=== PATIENT | female | born 1980 | race Two or more races ===

== ENCOUNTER 2022-05-25 13:09 | Emergency (ER) | payer OTHER, SELFPAY ==
--- NOTE | ~2022-05-25 | XR_ITS ---
EXAMINATION: XR SOFT TISSUE NECK CLINICAL INDICATION: Difficulty swallowing COMPARISON: None TECHNIQUE: 2 views of the soft tissue neck were obtained. FINDINGS: No radiodense foreign body. Normal appearance of the epiglottis and upper trachea. No retropharyngeal soft tissue swelling. Mild cervical spondylosis at C4-C5 through C6-C7. Preserved intervertebral disc heights. Visualized lung apices appear clear. XR/XR soft tissue neck IMPRESSION: 1. No radiodense foreign body. 2. No retropharyngeal soft tissue swelling.
--- NOTE | ~2022-05-25 | CT_ITS ---
EXAMINATION: CT SOFT TISSUE NECK WITH CONTRAST CLINICAL INFORMATION: Difficulty swallowing. COMPARISON: None. TECHNIQUE: Following intravenous administration of 60 mL of Omnipaque 350 contrast, helical imaging was performed in the axial plane with generation of coronal and sagittal reformatted images. Slightly limited examination with motion artifacts. This CT examination was performed using dose optimization techniques as appropriate, variously including the following: *Automated exposure control *Adjustment of mA and/or kV according to patient size (this includes techniques or standardized protocols for targeted exams where dose is matched to indication/reason for exam; i.e. extremities or head) *Use of iterative reconstruction technique DLP: 784 mGy-cm FINDINGS: No contour abnormality or pathologic enhancement is seen within the oral cavity, pharyngeal mucosal space, or larynx. The thyroid gland is normal. No cervical adenopathy is seen. The parotid and submandibular glands are normal. No abnormal retropharyngeal fluid collection identified. Dental hardware in place. No periapical lucencies are seen. The temporomandibular joints are normal. The middle ear cavities, mastoid air cells, and paranasal sinuses are well aerated. The airway is maintained. The carotid sheath vasculature opacifies normally. The imaged mediastinum is normal. The visualized portions of the lungs are grossly clear. There is a small calcified granuloma in the right upper lobe. The orbits are normal. The imaged portions of the brain demonstrate no acute abnormality. No acute osseous abnormality identified. The craniovertebral junction is normal. There is significant ossification of the posterior longitudinal ligament from the C3 through the C6 levels resulting in ventral thecal sac and cord distortion, most significantly at the C4-C5 and C5-C6 levels. CT/CT soft tissue neck w IV con IMPRESSION: Slightly limited study with motion artifacts. No soft tissue abnormality or fluid collection. No adenopathy. No acute process. 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
--- NOTE | 2022-05-25 13:12 | ED.GENADULT ---
HPI - General Adult General Chief complaint: General Medical <Clementine Carpio CNP - Last Filed: 05/25/22 13:18> Stated complaint: splur speach <Clementine Carpio CNP - Last Filed: 05/25/22 13:18> Time Seen by Provider: 05/25/22 16:45 <Clementine Carpio CNP - Last Filed: 05/25/22 13:18> Source: patient and family (Daughter) <JEFERSON Quinn - Last Filed: 05/25/22 20:06> Mode of arrival: ambulatory <JEFERSON Quinn Last Filed: 05/25/22 20:06> Limitations: other (And wishes 2nd language, family used for interpretation per patient request) <JEFERSON Quinn - Last Filed: 05/25/22 20:06> History of Present Illness HPI narrative: This is a 42-year-old female presenting to the emergency department with difficulty swallowing x2 weeks. According to patient this has been going on for 2 weeks and worsening. She tells me this started after she choked on a piece of pizza dough. She reports ever since then she has difficulty swallowing solids however does not have difficulties with swallowing fluids. She tells me she feels and discomfort in the bottom of her throat. She tells me she has not been eating much over the past few weeks because of this, she has a hard time telling me whether not she feels a foreign body sensation but she points to her throat and tells me she feels like there may be something there however uncertain. She reports 15 lb weight loss due to poor p.o. intake. Denies fevers, chills, chest pain, shortness of breath, nausea, vomiting, diarrhea, abdominal pain, headache, vision changes, dizziness, no changes in speech, no weakness <JEFERSON Quinn Last Filed: 05/25/22 20:06> Related Data Home medications: Previous Rx's Medication Instructions Recorded sucralfate 100 mg/mL oral 1 g (10 mL) PO Q6H 2 weeks #560 mL 05/25/22 suspension (Carafate) <Clementine Carpio CNP - Last Filed: 05/25/22 13:18> Allergies/adverse reactions: Allergies Allergy/AdvReac Type Severity Reaction Status Date / Time No Known Allergies Allergy Verified 05/25/22 13:19 <Clementine Carpio CNP - Last Filed: 05/25/22 13:18> Review of Systems Review of Systems: Constitutional : No Weight loss, No Fever, No Chills, No Fatigue, No Malaise ENT/Mouth : No sore throat, No Rhinorrhea, + FB sensation in throat Eyes: No Eye Pain, No Swelling, No Redness Cardiovascular : No Chest Pain, No SOB, No Dyspnea on Exertion, No Orthopnea, No Edema, No Palpitations Respiratory : No Cough, No Sputum, No Wheezing Gastrointestinal : No Nausea, No Vomiting, No Diarrhea, No Constipation, No abdominal Pain, No Hematochezia, No Melena Genitourinary : No Dysuria, No Urinary Frequency, No Hematuria, Musculoskeletal : No joint pain, No Myalgias, No Joint Swelling Skin : No Skin Lesions, No rash Neuro : No Weakness, No Numbness, No Dizziness, No Headache Psych : No Anxiety/Panic, No Depression All other systems reviewed and are negative <JEFERSON Quinn - Last Filed: 05/25/22 20:06> Yes all other systems are reviewed and are negative <JEFERSON Quinn - Last Filed: 05/25/22 20:06> [facility] Past Medical History Attestation statement: The following information was validated with the patient. <JEFERSON Quinn - Last Filed: 05/25/22 20:06> Source: old records reviewed and nursing notes reviewed <JEFERSON Quinn - Last Filed: 05/25/22 20:06> Social History Social History: Social History Advance Directives: No Advance Directives Information Provided: No <Clementine Carpio CNP - Last Filed: 05/25/22 13:18> Physical Exam ED Vital Signs: Vital Signs - 24 hr 05/25/22 13:15 05/25/22 17:42 Temperature 97.7 F Pulse Rate 95 91 Respiratory Rate 17 16 Blood Pressure 160/74 H 145/69 H Pulse Oximetry 98 98 Oxygen Delivery Method Room Air Room Air BMI result Body Mass Index 34.0 <Clementine Ayeshaedin Carpio CNP - Last Filed: 05/25/22 13:18> Vital Signs - 24 hr 05/25/22 13:15 05/25/22 17:42 Temperature 97.7 F Pulse Rate 95 91 Respiratory Rate 17 16 Blood Pressure 160/74 H 145/69 H Pulse Oximetry 98 98 Oxygen Delivery Method Room Air Room Air BMI result Body Mass Index 34.0 Vital signs stable <JEFERSON Quinn - Last Filed: 05/25/22 20:06> Appearance: Alert.? Oriented X3.? No acute distress.? Patient appears comfortable, speaking in full sentences, controlling secretions well and in no acute distress. Head: Normocephalic, atraumatic, no step-offs or deformities Eyes: Pupils equal, round and reactive to light.? ENT: Pharynx normal.? Airway patent, no foreign bodies. No edema, erythema to posterior pharynx. Neck: Normal inspection.? Neck supple.? CVS: Normal heart rate and rhythm.? Pulses normal.? Respiratory: No respiratory distress.? Breath sounds normal.? No stridor. Abdomen: Soft and nontender.? Skin: Skin warm and dry.? Normal skin color.? Normal skin turgor.? Extremities: No lower extremity edema.? No calf ttp. 5/5 strength to bilateral upper and lower extremities Neuro: Oriented X 3.? No motor deficit.? No sensory deficit. CN 2-12 intact . Normal pbxktx-[id number], euyv-rx-[id number], steady tandem gait normal coordination. NIH stroke scale 0. <JEFERSON Quinn - Last Filed: 05/25/22 20:06> Course Course Course Narrative: This is an RME: Additional HPI, ROS, PE not included below will be deferred to primary provider. Patient is a 42-year-old female who presents to the emergency department who presents to the emergency department reporting that 2 weeks ago reports that she chocked on a piece of pizza dough. Since then her mouth feels really dry, decreased saliva, having trouble sleeping. States only able tolerate liquids, when attempting to eat solid she feels as though she is unable to swallow it without spitting it out. She does report a couple of time she has been able to swallow solids without difficulty. Reports a FB sensation, pointing to her lower neck. Denies fevers, chills, nausea, vomiting, abdominal pain. Currently in no distress. <Clementine Carpio CNP - Last Filed: 05/25/22 13:18> Reevaluation(s) Reevaluation #1: CBC within normal limits. Chemistries within no acute finding. HCG negative. Coags normal. Soft tissue neck x-ray with no radiodense foreign bodies. No retropharyngeal soft tissue. Discussed CT scan results with Gastroenterology Dr. Doty, he advises outpatient follow-up and will likely require a barium swallow. Will give referral to GI. He also recommends giving patient fluids prior to discharge and soft food. Recommends discharge with Carafate suspension 1 g q.i.d. for 2 weeks to treat any component of esophageal abrasion. Patient tolerating fluids and soft foods. She will be discharged home. Advised to return with any new or worsening symptoms. <JEFERSON Quinn - Last Filed: 05/25/22 20:06> Time: 20:05 <JEFERSON Quinn - Last Filed: 05/25/22 20:06> Medications Administered Discontinued Medications Generic Name Dose Route Start Last Admin Trade Name Freq PRN Reason Stop Dose Admin Iohexol 150 ml 05/25/22 18:02 05/25/22 18:03 Iohexol 350 Mg/Ml 150 Ml Infus..Btl IV 05/25/22 18:03 60 ml ONCE ONE Administration <Clementine Carpio CNP - Last Filed: 05/25/22 13:18> Medications Administered Discontinued Medications Generic Name Dose Route Start Last Admin Trade Name Freq PRN Reason Stop Dose Admin Iohexol 150 ml 05/25/22 18:02 05/25/22 18:03 Iohexol 350 Mg/Ml 150 Ml Infus..Btl IV 05/25/22 18:03 60 ml ONCE ONE Administration <JEFERSON Qiunn - Last Filed: 05/25/22 20:06> Medical Decision Making Medical Decision Making [facility] Narrative: 1700 42-year-old female presents with difficulty swallowing status post choking episode 2 weeks ago. Reports 15 lb weight loss in the past 2 weeks. Appears comfortable and in no acute distress. Physical examination benign. Patient speaking in full sentences. Comfortable appearing. No stridor. Vital signs are stable. Concerns for possible foreign body in throat. Also concerns for esophageal stricture. Unlikey Stroke or posterior stroke. Will obtain CT of neck soft tissues. <JEFERSON Quinn - Last Filed: 05/25/22 20:06> Lab Data Result Diagrams: : 05/25/22 13:51 05/25/22 13:50 <Clementine Carpio CNP - Last Filed: 05/25/22 13:18> Labs: Lab Results 05/25/22 05/25/22 05/25/22 Range/Units 13:50 13:50 13:51 WBC 5.9 (4.8-10.8) X10*3/uL RBC 4.27 (4.20-5.50) X10*6/uL Hgb 10.2 L (12.0-16.0) g/dl Hct 32.6 L (37.0-47.0) % MCV 76.3 L (80.0-98.0) fL MCH 23.9 L (27.0-33.0) pg MCHC 31.3 (31.0-35.0) g/dl RDW 16.3 H (11.0-16.0) % Plt Count 357 (160-400) X10*3/uL MPV 10.3 (9.4-12.3) fL Immature Gran % (Auto) 0.3 (0.0-0.4) % Neut % (Auto) 70.7 (45-73) % Lymph % (Auto) 23.1 (20-40) % [place] % (Auto) 5.1 (2-11) % Eos % (Auto) 0.3 (0-4) % Baso % (Auto) 0.5 (0-2) % Lymph # (Auto) 1.4 (1.2-4.9) X10*3/uL [place] # (Auto) 0.3 (0.1-1.2) X10*3/uL Eos # (Auto) 0.0 (0.0-0.4) X10*3/uL Baso # (Auto) 0.0 (0.0-0.2) X10*3/uL Abs Immat Gran (auto) 0.02 (0.00-0.03) X10*3/uL Absolute Neuts (auto) 4.2 (2.0-8.3) x10*3/uL Absolute Nucleated RBC 0.000 (0.0-0.012) X10*3/uL Nucleated RBC % (auto) 0.0 (0.0-0.2) /100WBC PT 12.3 (10.0-13.1) SEC INR 1.1 (0.9-1.1) Sodium 139 (135-145) mmol/L Potassium 3.8 (3.3-5.1) mmol/L Chloride 105 (96-108) mmol/L Carbon Dioxide 26 (22-29) mmol/L Anion Gap 12 (12-20) BUN 7 L (9-16) mg/dL Creatinine 0.80 (0.5-1.4) mg/dL Estim Creat Clear Calc 116.5 Estimated GFR > 60 Random Glucose 106 (60-115) mg/dL Calcium 9.5 (8.4-10.2) mg/dL Total Bilirubin 0.5 (0.0-1.0) mg/dL AST 16 (5-31) U/L ALT 19 (0-31) U/L Alkaline Phosphatase 51 (39-117) U/L Total Protein 7.2 (6.5-8.0) g/dL Albumin 4.5 (3.5-5.0) g/dL Beta HCG, Quant < 2 mIU/mL <Clementine Carpio CNP - Last Filed: 05/25/22 13:18> Lab Results 05/25/22 05/25/22 05/25/22 Range/Units 13:50 13:50 13:51 WBC 5.9 (4.8-10.8) X10*3/uL RBC 4.27 (4.20-5.50) X10*6/uL Hgb 10.2 L (12.0-16.0) g/dl Hct 32.6 L (37.0-47.0) % MCV 76.3 L (80.0-98.0) fL MCH 23.9 L (27.0-33.0) pg MCHC 31.3 (31.0-35.0) g/dl RDW 16.3 H (11.0-16.0) % Plt Count 357 (160-400) X10*3/uL MPV 10.3 (9.4-12.3) fL Immature Gran % (Auto) 0.3 (0.0-0.4) % Neut % (Auto) 70.7 (45-73) % Lymph % (Auto) 23.1 (20-40) % [place] % (Auto) 5.1 (2-11) % Eos % (Auto) 0.3 (0-4) % Baso % (Auto) 0.5 (0-2) % Lymph # (Auto) 1.4 (1.2-4.9) X10*3/uL [place] # (Auto) 0.3 (0.1-1.2) X10*3/uL Eos # (Auto) 0.0 (0.0-0.4) X10*3/uL Baso # (Auto) 0.0 (0.0-0.2) X10*3/uL Abs Immat Gran (auto) 0.02 (0.00-0.03) X10*3/uL Absolute Neuts (auto) 4.2 (2.0-8.3) x10*3/uL Absolute Nucleated RBC 0.000 (0.0-0.012) X10*3/uL Nucleated RBC % (auto) 0.0 (0.0-0.2) /100WBC PT 12.3 (10.0-13.1) SEC INR 1.1 (0.9-1.1) Sodium 139 (135-145) mmol/L Potassium 3.8 (3.3-5.1) mmol/L Chloride 105 (96-108) mmol/L Carbon Dioxide 26 (22-29) mmol/L Anion Gap 12 (12-20) BUN 7 L (9-16) mg/dL Creatinine 0.80 (0.5-1.4) mg/dL Estim Creat Clear Calc 116.5 Estimated GFR > 60 Random Glucose 106 (60-115) mg/dL Calcium 9.5 (8.4-10.2) mg/dL Total Bilirubin 0.5 (0.0-1.0) mg/dL AST 16 (5-31) U/L ALT 19 (0-31) U/L Alkaline Phosphatase 51 (39-117) U/L Total Protein 7.2 (6.5-8.0) g/dL Albumin 4.5 (3.5-5.0) g/dL Beta HCG, Quant < 2 mIU/mL <JEFERSON Quinn - Last Filed: 05/25/22 20:06> Critical Care Time Critical Care Time Critical Care Time: Yes <JEFERSON Quinn - Last Filed: 05/25/22 20:06> Total Critical Care Time: 35 <JFEERSON Quinn - Last Filed: 05/25/22 20:06> Attestation: I attest to this time spent taking care of the patient, obtaining history, physical, reviewing labs, imaging, speaking to my attending, speaking to specialist. <JEFERSON Quinn - Last Filed: 05/25/22 20:06> Discharge Plan Discharge Clinical Impression: Difficulty swallowing, Sensation of foreign body in throat <Clementine Carpio CNP - Last Filed: 05/25/22 13:18> Patient Disposition: Home, Self-Care <Clementine Carpio CNP - Last Filed: 05/25/22 13:18> Instructions: Soft Diet (ED), Upper Endoscopy (DC) <Clementine Carpio CNP - Last Filed: 05/25/22 13:18> Additional Instructions: Take your medications as prescribed. If you were prescribed antibiotics today, it is important that you take your medication to their entirety, do not skip any doses, do not finish them early. Follow-up with your primary care provider this week. Return to the emergency department with new or worsening symptoms. Such as fevers, chills, chest pain, shortness of breath, nausea, vomiting, dizziness, headache, vision changes, lethargy, changes in speech, inability to swallow In case of emergency call 911 ?CT/CT soft tissue neck w IV con IMPRESSION: Slightly limited study with motion artifacts. No soft tissue abnormality or fluid collection. No adenopathy. No acute process. ? 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 <Clementine Carpio CNP - Last Filed: 05/25/22 13:18> Prescriptions: New sucralfate [Carafate] 100 mg/mL suspension 1 g PO Q6H 14 Days Qty: 560 0RF <Clementine Carpio CNP - Last Filed: 05/25/22 13:18> Referrals: Indigo Schmidt [Emergency Nurse] - 2 days <Clementine Carpio CNP - Last Filed: 05/25/22 13:18> Stand Alone Forms: Work/School Release <Clementine Carpio CNP - Last Filed: 05/25/22 13:18>
[2022-05-25 13:15] VITALS: BP 160/74; PULSE 95; RESP 17; TEMP 36.5; O2SAT 98; BMI 34.0
[2022-05-25 13:55] LABS: MANUAL DIFF FLAG NO
[2022-05-25 13:56] LABS: Basophils Percent Auto 0.5 % (0-2); Eosinophils Percent Auto 0.3 % (0-4); Hematocrit 32.6 % (37.0-47.0); Hemoglobin 10.2 g/dl (12.0-16.0); Imm Gran Abs Auto 0.02 X10*3/uL (0.00-0.03); Imm Gran Pct Auto 0.3 % (0.0-0.4); Lymphocytes Absolute Auto 1.4 X10*3/uL (1.2-4.9); Lymphocytes Percent Auto 23.1 % (20-40); Mean Corpuscular HGB Conc 31.3 g/dl (31.0-35.0); Mean Corpuscular Hemoglobin 23.9 pg (27.0-33.0); Mean Corpuscular Volume 76.3 fL (80.0-98.0); Mean Platelet Volume 10.3 fL (9.4-12.3); Monocytes Absolute Auto 0.3 X10*3/uL (0.1-1.2); Monocytes Percent Auto 5.1 % (2-11); Neutrophils Absolute Auto 4.2 x10*3/uL (2.0-8.3); Neutrophils Percent Auto 70.7 % (45-73); Platelet Count 357 X10*3/uL (160-400); Red Blood Count 4.27 X10*6/uL (4.20-5.50); Red Cell Distribution Width 16.3 % (11.0-16.0); White Blood Count 5.9 X10*3/uL (4.8-10.8)
[2022-05-25 14:01] LABS: INTERNATIONAL NORM RATIO 1.1 (0.9-1.1); Prothrombin Time 12.3 SEC (10.0-13.1)
[2022-05-25 14:20] LABS: Alanine Aminotransferase 19 U/L (0-31); Albumin Level 4.5 g/dL (3.5-5.0); Alkaline Phosphatase 51 U/L (39-117); Anion Gap 12 (12-20); Aspartate Amino Transferase 16 U/L (5-31); Bilirubin Total 0.5 mg/dL (0.0-1.0); Blood Urea Nitrogen 7 mg/dL (9-16); Calcium 9.5 mg/dL (8.4-10.2); Carbon Dioxide 26 mmol/L (22-29); Chloride 105 mmol/L (96-108); Creatinine Clr Calc Pharmacy 116.5; Estimated Glomerular Filt Rate > 60; Glucose Random 106 mg/dL (60-115); Potassium 3.8 mmol/L (3.3-5.1); Sodium 139 mmol/L (135-145); Total Protein 7.2 g/dL (6.5-8.0)
[2022-05-25 17:37] LABS: HCG Quantitative < 2 mIU/mL
[2022-05-25 17:42] VITALS: BP 145/69; PULSE 91; RESP 16; O2SAT 98
--- NOTE | 2022-05-25 19:55 | PC.NURSE ---
Assumed care of pt. at 1900. Pt. is up and walking around in room. Pt. ambulates to the bathroom. Pt. provided with a pitcher of water and ecouraged to drink plenty of fluids. Pt. denies pain. Pending results of soft tissue scan at this time.
[2022-05-25 20:31] VITALS: BP 134/79; PULSE 77; RESP 20; TEMP 36.8; O2SAT 98
== END 2022-05-25 20:53 | disposition home or self-care (01) ==
PROVIDERS: Nurse Practitioner Family; Physician Assistant; Emergency Provider Emergency Medicine
DX: R47.81 Slurred speech (principal); R13.10 Dysphagia, unspecified; R09.89 Other specified symptoms and signs involving the circulatory and respiratory systems; M54.2 Cervicalgia; Z79.899 Other long term (current) drug therapy
CPT/HCPCS: 36415; 70360; 70491; 80053; 84702; 85025; 85610; 99284; Q9967

== ENCOUNTER 2024-09-14 14:48 | Emergency (ER) | payer OTHER, SELFPAY ==
--- NOTE | ~2024-09-14 | CT_ITS ---
CLINICAL HISTORY: lower abd pain CT abdomen and pelvis with IV contrast. COMPARISON: None FINDINGS: Partially visualized lung bases are unremarkable. Liver is enlarged with right lobe measuring 20.8 cm. Cholelithiasis present within the gallbladder body. No pericholecystic inflammatory changes. Normal spleen. Normal pancreas. Normal adrenal glands. Symmetric renal enhancement. Nonobstructing 4 mm right renal calculus. Nonobstructing 3 mm and 4 mm left renal calculi. No hydronephrosis. Normal appendix. Mild colonic stool burden. No bowel obstruction. No mesenteric or retroperitoneal lymphadenopathy. Normal abdominal aorta. Urinary bladder is contracted. Lobular uterine contour likely representing a fibroid uterus. No adnexal mass. Small fat containing umbilical hernia. [id number] lumbar spondylosis. No acute fracture or suspicious bone lesion. IMPRESSION: 1. No evidence of appendicitis or diverticulitis. No bowel obstruction. 2. Nonobstructing renal calculi measuring up to 4 mm. 3. Fibroid uterus. 4. Hepatomegaly. This document has been electronically signed by: Grant Recio MD on 09/14/2024 18:23:37
--- NOTE | ~2024-09-14 | US_ITS ---
CLINICAL HISTORY: epigastric pain US abdomen limited. COMPARISON: CT abdomen and pelvis dated 09/14/24 at 17:36 EDT Technique: Real time sonographic imaging, including color-flow imaging, was performed by the script developer. Multiple medical service representative static images were saved for review. FINDINGS: The gallbladder is normal in size. Cholelithiasis present within the gallbladder fundus. There is a negative sonographic Steele's sign. Gallbladder wall: 2 mm, normal. Common bile duct: 6 mm, normal. No free intraperitoneal fluid identified. IMPRESSION: 1. Cholelithiasis. No evidence of cholecystitis. This document has been electronically signed by: Grant Recio MD on 09/14/2024 19:47:20
[2024-09-14 14:54] VITALS: BP 152/84; PULSE 82; RESP 18; TEMP 36.5; O2SAT 100; BMI 36.9
--- NOTE | 2024-09-14 14:55 | ED.GENADULT ---
HPI - General Adult General Chief complaint: Abdominal Pain Stated complaint: weak abd pain Time Seen by Provider: 09/14/24 17:06 Related Data Previous Rx's ?Medication ?Instructions ?Recorded sucralfate 100 mg/mL oral 1 g (10 mL) PO Q6H 2 weeks #560 mL 05/25/22 suspension (Carafate) pantoprazole 40 mg tablet,delayed 40 mg PO DAILY #14 tabs 09/14/24 release (Protonix) Allergies Allergy/AdvReac Type Severity Reaction Status Date / Time No Known Allergies Allergy Verified 09/14/24 14:58 [facility] Social History Social History Smoked in Last 30 Days: No Use of substances other than those prescribed or required for medical reasons: No Advance Directives: No Advance Directives Information Provided: Yes Physical Exam ED Vital Signs: Vital Signs - 24 hr 09/14/24 14:54 09/14/24 18:19 09/14/24 19:20 Temperature 97.7 F 98.4 F 98.5 F Pulse Rate 82 82 78 Respiratory Rate 18 16 16 Blood Pressure 152/84 H 131/66 144/71 H Pulse Oximetry 100 98 99 Oxygen Delivery Method Room Air Room Air Room Air BMI result Body Mass Index 36.9 Course Course Course Narrative: This is a rapid medical exam performed by Dameon Ambrocio NP: Additional HPI, ROS, PE not included below will be deferred to primary provider. Patient is a 44-year-old female presenting with complaint of lower abdominal pressure, low back pain, weakness, nausea x a few days. Plan: labs, UA Medications Administered Discontinued Medications Generic Name Dose Route Start Last Admin Trade Name Freq PRN Reason Stop Dose Admin Iohexol 100 ml 09/14/24 17:52 09/14/24 17:52 Iohexol 350 Mg/Ml 100 Ml Infus..Btl IV 09/14/24 17:53 85 ml ONCE ONE Administration Ketorolac Tromethamine 15 mg 09/14/24 17:20 09/14/24 18:11 Ketorolac Tromethamine 15 Mg/Ml Vial IVPUSH 09/14/24 17:21 15 mg ONCE ONE Administration Medical Decision Making Lab Data 09/14/24 15:11 09/14/24 15:11 Labs: Lab Results 09/14/24 09/14/24 Range/Units 15:11 15:19 WBC 8.4 (4.8-10.8) X10*3/uL RBC 4.41 (4.20-5.50) X10*6/uL Hgb 9.4 L (12.0-16.0) g/dl Hct 30.4 L (37.0-47.0) % MCV 68.9 L (80.0-98.0) fL MCH 21.3 L (27.0-33.0) pg MCHC 30.9 L (31.0-35.0) g/dl RDW 18.4 H (11.0-16.0) % Plt Count 387 (160-400) X10*3/uL MPV 9.1 L (9.4-12.3) fL Immature Gran % (Auto) 0.1 (0.0-0.4) % Neut % (Auto) 62.0 (45-73) % Lymph % (Auto) 30.2 (20-40) % [place] % (Auto) 5.7 (2-11) % Eos % (Auto) 1.4 (0-4) % Baso % (Auto) 0.6 (0-2) % Lymph # (Auto) 2.5 (1.2-4.9) X10*3/uL [place] # (Auto) 0.5 (0.1-1.2) X10*3/uL Eos # (Auto) 0.1 (0.0-0.4) X10*3/uL Baso # (Auto) 0.1 (0.0-0.2) X10*3/uL Abs Immat Gran (auto) 0.01 (0.00-0.03) X10*3/uL Absolute Neuts (auto) 5.2 (2.0-8.3) x10*3/uL Absolute Nucleated RBC 0.000 (0.0-0.012) X10*3/uL Nucleated RBC % (auto) 0.0 (0.0-0.2) /100WBC Sodium 138 (135-145) mmol/L Potassium 4.2 (3.3-5.1) mmol/L Chloride 107 (96-108) mmol/L Carbon Dioxide 23 (22-29) mmol/L Anion Gap 12 (12-20) BUN 13 (9-16) mg/dL Creatinine 0.67 (0.5-1.4) mg/dL Estim Creat Clear Calc 138.0 Estimated GFR > 60 Random Glucose 99 (60-115) mg/dL Calcium 8.9 D (8.4-10.2) mg/dL Total Bilirubin 0.2 (0.0-1.0) mg/dL AST 33 H (5-31) U/L ALT 64 H (0-31) U/L Alkaline Phosphatase 70 (39-117) U/L Total Protein 7.4 (6.5-8.0) g/dL Albumin 4.3 (3.5-5.0) g/dL Lipase 35 (8-78) U/L Urine Color Yellow Urine Appearance Clear Urine pH 5.5 (5.0-9.0) Ur Specific [place] 1.015 (1.005-1.025) Urine Protein Negative (Neg-Trace) mg/dL Urine Glucose (UA) Negative (Negative) mg/dL Urine Ketones Negative (Negative) mg/dL Urine Blood Negative (Negative) Urine Nitrite Negative (Negative) Ur Leukocyte Esterase Negative (Negative) Urine Test NEGATIVE (NEGATIVE) Influenza Type A (PCR) NEGATIVE (Negative) Influenza Type B (PCR) NEGATIVE (Negative) RSV RNA Qual (PCR) NEGATIVE (Negative) SARS-CoV-2 RNA (RT-PCR) NEGATIVE (Negative) Discharge Plan Discharge Clinical Impression: Gastritis, Biliary colic Patient Disposition: Home, Self-Care Instructions: Gastritis (DC), Biliary Colic (ED) Prescriptions: New pantoprazole [Protonix] 40 mg tablet,delayed release (DR/EC) 40 mg PO DAILY Qty: 14 0RF No Action sucralfate [Carafate] 100 mg/mL suspension 1 g PO Q6H 14 Days Qty: 560 0RF Referrals: Dakotah Muniz MD [Physician] - 09/21/24 Gamaliel Sifuentes MD [Physician] - 09/21/24 Print Language: Spanish
[2024-09-14 15:15] LABS: MANUAL DIFF FLAG NO
[2024-09-14 15:19] LABS: Basophils Absolute Auto 0.1 X10*3/uL (0.0-0.2); Basophils Percent Auto 0.6 % (0-2); Eosinophils Absolute Auto 0.1 X10*3/uL (0.0-0.4); Eosinophils Percent Auto 1.4 % (0-4); Hematocrit 30.4 % (37.0-47.0); Hemoglobin 9.4 g/dl (12.0-16.0); Imm Gran Abs Auto 0.01 X10*3/uL (0.00-0.03); Imm Gran Pct Auto 0.1 % (0.0-0.4); Lymphocytes Absolute Auto 2.5 X10*3/uL (1.2-4.9); Lymphocytes Percent Auto 30.2 % (20-40); Mean Corpuscular HGB Conc 30.9 g/dl (31.0-35.0); Mean Corpuscular Hemoglobin 21.3 pg (27.0-33.0); Mean Corpuscular Volume 68.9 fL (80.0-98.0); Mean Platelet Volume 9.1 fL (9.4-12.3); Monocytes Absolute Auto 0.5 X10*3/uL (0.1-1.2); Monocytes Percent Auto 5.7 % (2-11); Neutrophils Absolute Auto 5.2 x10*3/uL (2.0-8.3); Platelet Count 387 X10*3/uL (160-400); Red Blood Count 4.41 X10*6/uL (4.20-5.50); Red Cell Distribution Width 18.4 % (11.0-16.0); White Blood Count 8.4 X10*3/uL (4.8-10.8)
[2024-09-14 15:29] LABS: Anion Gap 12 (12-20)
[2024-09-14 15:31] LABS: Appearance Urine Clear; Color Urine Yellow; Glucose Urine UA Negative (Negative); Leukocyte Esterase Urine Negative (Negative); Nitrite Urine Negative (Negative); PH 5.5 (5.0-9.0); Specific Gravity - Urine 1.015 (1.005-1.025); Urine Blood Negative (Negative); Urine Ketones Negative (Negative); Urine Protein Negative (Neg-Trace)
[2024-09-14 15:33] LABS: Alanine Aminotransferase 64 U/L (0-31); Albumin Level 4.3 g/dL (3.5-5.0); Aspartate Amino Transferase 33 U/L (5-31); Bilirubin Total 0.2 mg/dL (0.0-1.0); Blood Urea Nitrogen 13 mg/dL (9-16); Calcium 8.9 mg/dL (8.4-10.2); Carbon Dioxide 23 mmol/L (22-29); Chloride 107 mmol/L (96-108); Estimated Glomerular Filt Rate > 60; Glucose Random 99 mg/dL (60-115); Lipase 35 U/L (8-78); Potassium 4.2 mmol/L (3.3-5.1); Sodium 138 mmol/L (135-145); Total Protein 7.4 g/dL (6.5-8.0)
[2024-09-14 16:50] LABS: Alkaline Phosphatase 70 U/L (39-117)
[2024-09-14 17:05] LABS: Influenza A PCR NEGATIVE (Negative); Influenza B PCR NEGATIVE (Negative); Resp Syncy Virus RNA Qual PCR NEGATIVE (Negative); SARS COV2 PCR INHOUSE NEGATIVE (Negative)
--- NOTE | 2024-09-14 17:21 | ED_ITS ---
HPI - Abdominal Pain General Chief Complaint: Abdominal Pain Stated Complaint: weak abd pain Time Seen by Provider: 09/14/24 17:06 History of Present Illness HPI narrative: Patient is 44 years old presents today with having abdominal pain it has been ongoing for about a week. Mild nausea no vomiting there was some epigastric pain now is in the lower abdomen there is a history of kidney stones in the past is no abdominal surgery done in the past. Does not think she is . There is no fever no chills her menstruation has been normal in timing and duration. No coughing or congestion or upper respiratory symptoms. No diaphoresis. Related Data Previous Rx's ?Medication ?Instructions ?Recorded sucralfate 100 mg/mL oral 1 g (10 mL) PO Q6H 2 weeks #560 mL 05/25/22 suspension (Carafate) pantoprazole 40 mg tablet,delayed 40 mg PO DAILY #14 tabs 09/14/24 release (Protonix) Allergies Allergy/AdvReac Type Severity Reaction Status Date / Time No Known Allergies Allergy Verified 09/14/24 14:58 Review of Systems Review of Systems Positive abdominal pain Yes all other systems are reviewed and are negative [facility] Past Medical History Attestation statement: The following information was validated with the patient. Social History Social History Smoked in Last 30 Days: No Use of substances other than those prescribed or required for medical reasons: No Advance Directives: No Advance Directives Information Provided: Yes Physical Exam ED Vital Signs: Vital Signs - 24 hr 09/14/24 14:54 09/14/24 18:19 09/14/24 19:20 Temperature 97.7 F 98.4 F 98.5 F Pulse Rate 82 82 78 Respiratory Rate 18 16 16 Blood Pressure 152/84 H 131/66 144/71 H Pulse Oximetry 100 98 99 Oxygen Delivery Method Room Air Room Air Room Air BMI result Body Mass Index 36.9 Appearance: Alert. Oriented X3. No acute distress. Eyes: Pupils equal, round and reactive to light. ENT: Pharynx normal. Neck: Normal inspection. Neck supple. No lymph nodes noted. No crepitus CVS: Normal heart rate and rhythm. Pulses normal. Normal S1 and S2 Respiratory: No respiratory distress. Breath sounds normal. No Wheezing. No rales Abdomen: Soft and nontender. No rigidity. No distention. good BS x4 Skin: Skin warm and dry. Normal skin color. Normal skin turgor. Extremities: No lower extremity edema. Neurovascular intact to all extremities. No Lacerations. No Rash Neuro: Oriented X 3. No motor deficit. No sensory deficit. Moving all extermities. No slurred speech Medical Decision Making Medical Decision Making [facility] Narrative: Patient's CT scan of the abdomen pelvis was grossly negative. Ultrasound showed evidence of gallstone but no evidence of cholecystitis. Question mild of she changes secondary to fatty liver restless biliary colic. Will start patient on a PPI as patient to follow a low-fat diet have patient follow-up with surgery on an outpatient basis test was negative no related issue abdomen is soft nontender symptom relief will discharge home Differential Diagnosis Differential Diagnoses: The differential diagnosis associated with the presentation includes Biliary colic, appendicitis, diverticulitis, obstruction Admission/Observation Consideration of admission/observation: Escalation of care including admission/observation considered Lab Data [facility] Lab Attestation statement: I reviewed the patient's lab results. 09/14/24 15:11 09/14/24 15:11 Labs: Lab Results 09/14/24 09/14/24 Range/Units 15:11 15:19 WBC 8.4 (4.8-10.8) X10*3/uL RBC 4.41 (4.20-5.50) X10*6/uL Hgb 9.4 L (12.0-16.0) g/dl Hct 30.4 L (37.0-47.0) % MCV 68.9 L (80.0-98.0) fL MCH 21.3 L (27.0-33.0) pg MCHC 30.9 L (31.0-35.0) g/dl RDW 18.4 H (11.0-16.0) % Plt Count 387 (160-400) X10*3/uL MPV 9.1 L (9.4-12.3) fL Immature Gran % (Auto) 0.1 (0.0-0.4) % Neut % (Auto) 62.0 (45-73) % Lymph % (Auto) 30.2 (20-40) % [place] % (Auto) 5.7 (2-11) % Eos % (Auto) 1.4 (0-4) % Baso % (Auto) 0.6 (0-2) % Lymph # (Auto) 2.5 (1.2-4.9) X10*3/uL [place] # (Auto) 0.5 (0.1-1.2) X10*3/uL Eos # (Auto) 0.1 (0.0-0.4) X10*3/uL Baso # (Auto) 0.1 (0.0-0.2) X10*3/uL Abs Immat Gran (auto) 0.01 (0.00-0.03) X10*3/uL Absolute Neuts (auto) 5.2 (2.0-8.3) x10*3/uL Absolute Nucleated RBC 0.000 (0.0-0.012) X10*3/uL Nucleated RBC % (auto) 0.0 (0.0-0.2) /100WBC Sodium 138 (135-145) mmol/L Potassium 4.2 (3.3-5.1) mmol/L Chloride 107 (96-108) mmol/L Carbon Dioxide 23 (22-29) mmol/L Anion Gap 12 (12-20) BUN 13 (9-16) mg/dL Creatinine 0.67 (0.5-1.4) mg/dL Estim Creat Clear Calc 138.0 Estimated GFR > 60 Random Glucose 99 (60-115) mg/dL Calcium 8.9 D (8.4-10.2) mg/dL Total Bilirubin 0.2 (0.0-1.0) mg/dL AST 33 H (5-31) U/L ALT 64 H (0-31) U/L Alkaline Phosphatase 70 (39-117) U/L Total Protein 7.4 (6.5-8.0) g/dL Albumin 4.3 (3.5-5.0) g/dL Lipase 35 (8-78) U/L Urine Color Yellow Urine Appearance Clear Urine pH 5.5 (5.0-9.0) Ur Specific [place] 1.015 (1.005-1.025) Urine Protein Negative (Neg-Trace) mg/dL Urine Glucose (UA) Negative (Negative) mg/dL Urine Ketones Negative (Negative) mg/dL Urine Blood Negative (Negative) Urine Nitrite Negative (Negative) Ur Leukocyte Esterase Negative (Negative) Urine Test NEGATIVE (NEGATIVE) Influenza Type A (PCR) NEGATIVE (Negative) Influenza Type B (PCR) NEGATIVE (Negative) RSV RNA Qual (PCR) NEGATIVE (Negative) SARS-CoV-2 RNA (RT-PCR) NEGATIVE (Negative) Independent Interpretation I performed an independent interpretation of an: Ultrasound (Positive gallstone) and CT Scan (No obstruction noted) Radiology Impression Discussion of test interpretation with radiology: I have reviewed the radiologist's reading. Independent Historian Clinical information obtained from an independent historian. History obtained from or confirmed by: Other (Additional history of pain through patient's family) Medications Administered Discontinued Medications Generic Name Dose Route Start Last Admin Trade Name Freq PRN Reason Stop Dose Admin Iohexol 100 ml 09/14/24 17:52 09/14/24 17:52 Iohexol 350 Mg/Ml 100 Ml Infus..Btl IV 09/14/24 17:53 85 ml ONCE ONE Administration Ketorolac Tromethamine 15 mg 09/14/24 17:20 09/14/24 18:11 Ketorolac Tromethamine 15 Mg/Ml Vial IVPUSH 09/14/24 17:21 15 mg ONCE ONE Administration Discharge Plan Discharge Clinical Impression: Gastritis, Biliary colic Patient Disposition: Home, Self-Care Instructions: Gastritis (DC), Biliary Colic (ED) Prescriptions: New pantoprazole [Protonix] 40 mg tablet,delayed release (DR/EC) 40 mg PO DAILY Qty: 14 0RF No Action sucralfate [Carafate] 100 mg/mL suspension 1 g PO Q6H 14 Days Qty: 560 0RF Referrals: Dakotah Muniz MD [Physician] - 09/21/24 Gamaliel Sifuentes MD [Physician] - 09/21/24 Print Language: Uzbek
[2024-09-14] MEDS: iohexoL 350 MG/ML 100 ML INFUS..BTL IV (17:52)
[2024-09-14 17:54] LABS: UPreg QC Valid YES; Urine Pregnancy NEGATIVE (NEGATIVE)
[2024-09-14] MEDS: Ketorolac Tromethamine 15 MG/ML VIAL IVPUSH (18:11)
[2024-09-14 18:19] VITALS: BP 131/66; PULSE 82; RESP 16; TEMP 36.9; O2SAT 98
[2024-09-14 19:20] VITALS: BP 144/71; PULSE 78; RESP 16; TEMP 36.9; O2SAT 99
[2024-09-14 21:01] VITALS: BP 136/86; PULSE 72; RESP 16; TEMP 36.6; O2SAT 97
== END 2024-09-14 21:04 | disposition home or self-care (01) ==
PROVIDERS: Registered Nurse Emergency; Emergency Provider Emergency Medicine Emergency Medical Services
DX: K80.50 Calculus of bile duct without cholangitis or cholecystitis without obstruction (principal); K29.70 Gastritis, unspecified, without bleeding; R10.13 Epigastric pain; R10.2 Pelvic and perineal pain; Z03.818 Encounter for observation for suspected exposure to other biological agents ruled out; Z79.899 Other long term (current) drug therapy
CPT/HCPCS: 0241U; 36415; 74177; 76705; 80053; 81003; 81025; 83690; 85025; 96374; 99284; J1885; Q9967

== ENCOUNTER → 2024-09-14 17:20 | Outpatient (BNV) | payer OTHER, SELFPAY | PROVIDERS: Emergency Provider Emergency Medicine Emergency Medical Services; Visit Provider Radiology Diagnostic Radiology | DX: R10.13 Epigastric pain (principal) | CPT/HCPCS: 74177; 76705 ==

== ENCOUNTER 2024-10-06 14:06 | Outpatient (AMB) | payer OTHER, SELFPAY ==
--- NOTE | 2024-10-06 14:10 | A.OFFVIS_ITS ---
Vital Signs 10/06/24 14:17 Height 5 ft 8 in Weight 237 lb BMI 36.0 BP 133/65 Blood Pressure Location Lt brachial Position Sitting Pulse 101 H Intake Visit Reasons: abdominal pain Intake Note: Patient is seen in office for ER follow up visit, following abdominal pain. Pt c/o: is taking the medication prescribe and the pain is better, area is still sore, admits to nausea, after meals stomach feels heavy full constipation CT/US/ED: 09/14/24 Accompanied by: Daughter Allergies No Known Allergies Allergy (Verified 10/06/24 14:16) Medication List - Last Reconciled 10/06/24 by Ton Bob MD pantoprazole (Protonix) 40 mg PO DAILY sucralfate (Carafate) 1 g (10 mL) PO Q6H 2 weeks HPI Comments Details: 44-year-old female patient referred by the emergency department after recent episode of severe abdominal pain. She reports multiple episodes of similar pain over the past several months felt mainly in the epigastrium but radiating to both the right upper quadrant and left lower quadrant and into the back. The pain seems to be made worse with fatty food intake is occasionally associated with nausea. She denies fever or chills. Workup in the emergency department revealed slightly elevated liver function tests. Ultrasound of the abdomen confirmed several gallstones within the gallbladder with a negative sonographic Steele sign. Wall thickness was normal and the common bile duct was normal. She was placed on Protonix and Carafate which helped to some degree but she continues to have some abdominal pain. She presents today to discuss possible cholecystectomy. [facility] Social History Alcohol intake: never Patient Tobacco Use Status: Never used Tobacco Review of Systems Const All systems reviewed & are unremarkable except as noted in HPI and below Physical Exam Vital Signs: Last Vital Signs Pulse 101 H 10/06/24 14:17 BP 133/65 10/06/24 14:17 BMI result Body Mass Index 36.0 Const General: cooperative and no acute distress Nutritional Appearance: well nourished Orientation/consciousness: patient oriented x3 Limitations: no limitations HEENT Head: Yes normocephalic and Yes atraumatic Ears: hearing grossly normal bilaterally Eyes Sclerae: sclerae normal Resp Effort & Inspection: normal respiratory effort, no audible wheezes, no cough and no respiratory distress Cardio Jugular venous distension: no JVD GI Inspection: Yes normal to inspection Palpation (GI): Soft to palpation, nontender, no guarding, not rigid and No hepatosplenomegaly present Percussion: Yes normal to percussion Auscultation: normal bowel sounds Skin Other: Warm, dry, no rash Neuro General: patient oriented x3 Extrem General: Yes no clubbing, cyanosis or edema Assessment & Plan Assessment & Plan (1) Recurrent biliary colic: Code(s): K80.50 - Calculus of bile duct without cholangitis or cholecystitis without obstruction Category: Medical Plan 44-year-old female patient presenting with complaints of epigastric and right upper quadrant abdominal pain radiating to bilateral back found on workup the multiple gallstones within the gallbladder. She also reports fatty food intolerance. On examination the patient's abdomen is soft and nondistended with a negative Steele sign. Patient's history and exam is most consistent with biliary colic due to cholelithiasis. The options are to continue to avoid fatty foods verses elective laparoscopic or possible open cholecystectomy. I reviewed the procedure, risks, and alternatives of laparoscopic or possible open cholecystectomy and she consents to the surgery. She will be scheduled as a short-stay surgery. Coding Level of Care Code New Pt Level 4 (52400) Diagnoses Recurrent biliary colic K80.50
[2024-10-06 14:17] VITALS: BP 133/65; PULSE 101; BMI 36.0
--- OUTSIDE RECORDS SUMMARY | 2024-10-06 15:18 | XMS_ITS | Clinical Summary ---
Author Organization [facility] ity Address [address] [place] [address] Care Team Providers Care Border Measurer And Cutter Name Role Phone Kiya Small MD Primary Care Provider [phone] Allergies No known active allergies Medications cholecalciferol (VITAMIN D-3) 50 mcg (2,000 unit) capsule Take 1 tablet.old by mouth daily. 10/01/2022 Active Active Problems Problem Noted Date Diagnosed Date Fibroid uterus 05/25/2019 Overview (06/01/2024): US Pelvis - 05/21/19 - 1543 IMPRESSION: EMS 1.44cm Fibroid uterus including a 1.9 cm submucosal right lateral fundus. Left ovarian 1.2 hemorrhagic cyst and exophytic 1.6 cm cystic lesion. No ultrasound evidence of ovarian torsion. Iron deficiency anemia, unspecified 04/22/2019 Overview (06/01/2024): Hx of heavy menses. Vitamin D deficiency 02/20/2019 Lipoma, face 11/12/2018 Mass of face 11/12/2018 Epidermal inclusion cyst 09/01/2018 Positive PPD 08/09/2015 Overview (06/01/2024): Ppd 20 mm. Latent TB, seen in TB clinic. Nephrolithiasis 07/20/2015 Obstructive sleep apnea 07/30/2014 Dermatofibroma 06/16/2013 Ganglion 06/16/2013 Obesity (BMI 30.0-34.9) 06/16/2013 Vertigo 06/16/2013 Immunizations Name Administration Dates Next Due PPD Test 07/27/2015 Tdap Tetanus diptheria acell ular pertussis (Boostrix; Adacel) 7yo and older 06/16/2013 Surgical History Surgery Date Site/Laterality Comments SECTION PROCEDURE: HISTORICAL DELIVERY; COMMENT: x2 last in 2008 Medical History Medical History Date Comments Nephrolithiasis DX:Nephrolithias is Obstructive sleep apnea (sheila lt) (pediatric) 07/30/2014 DX:Obstructive sleep apnea ( adult) (pediatric) Positive PPD DX:Positive PPD Family History Medical History Relation Name Comments Diabetes Mother Other: heart problem Mother Other: thyroid cancer Mother's side 1 Other: thyroid cancer Mother's side 2 Blindness Neg Hx Cataracts Neg Hx Glaucoma Neg Hx Macular degeneration Neg Hx Strabismus Neg Hx Relation Name Status Comments Father Alive Mother Alive Mother's side 1 Mother's side 2 Social History Tobacco Use Types Packs/Day Years Used Date Smoking Tobacco: Never Smokeless Tobacco: Never Alcohol Use Standard Drinks/Week Comments No 0 (1 standard drink = 0.6 oz pur e alcohol) Comments Unknown Sex and Gender Information Value Date Recorded Sex Assigned at Not on file Legal Sex Female 8:21 AM EST Gender Identity Not on file Sexual Orientation Not on file Obstetrics History Last Filed Vital Signs Vital Sign Reading Time Taken Comments Blood Pressure 136/87 08/26/2023 3:41 PM EDT Pulse 85 08/26/2023 3:41 PM EDT Temperature - - Respiratory Rate - - Oxygen Saturation - - Inhaled Oxygen Concentration - - Weight 117 kg (259 lb) 08/26/2023 3:41 PM EDT Height 175.3 cm (5' 9 ) 08/26/2023 3:41 PM EDT Body Mass Index 38.25 08/26/2023 3:41 PM EDT Plan of Treatment Upcoming Encounters Date Type Department Care Team (Late st Contact Info) Description 06/17/2025 8:00 AM EST Office Visit Adult Medicine [address] [phone] Kiya Small MD [address] [place] [id number] Health Maintenance Due Date Last Done Comments Hepatitis B Vaccines (1 of 3 - 19+ 3-dose series) 1998 Colorectal Cancer Screening: Colonoscopy 04/29/2022 Depression Screening 04/29/2022 Social Influencers of Health Screening 04/29/2022 Breast Cancer Screening 05/11/2022 05/11/2020 DTaP,Tdap,and Td Vaccines (2 - Td or Tdap) 06/16/2023 06/16/2013 COVID-19 Vaccine (1 - 2023-2 5 season) 2024 Cervical Cancer Screening: HPV 05/13/2024 05/13/2019 Influenza Vaccine (Season Ended) 2025 Cholesterol Screening (Lipid Panel) 08/10/2027 08/09/2022 HIV Screening Completed 11/30/2019 Hepatitis C Screening Completed 11/30/2019 HIB Vaccines Aged Out No longer eligi ble based on patient's age to complete this topic HPV Vaccines Aged Out No longer eligi ble based on patient's age to complete this topic Hepatitis A Vaccines Aged Out No long er eligible based on patient's age to complete this topic IPV Vaccines Aged Out No longer eligi ble based on patient's age to complete this topic MMR Vaccines Aged Out No longer eligi ble based on patient's age to complete this topic Meningococcal ACWY Vaccine Aged Out N o longer eligible based on patient's age to complete this topic Meningococcal B Vaccine Aged Out No l onger eligible based on patient's age to complete this topic Pneumococcal Vaccine: Pediat rics (0 to 5 Years) and At-Risk Patients (6 to 64 Years) Aged Out No longer eligi ble based on patient's age to complete this topic RSV Immunization Patients Un urvashi 20 months Aged Out No longer eligible b ased on patient's age to complete this topic Varicella Vaccines Aged Out No longer eligible based on patient's age to complete this topic Procedures Procedure Name Priority Date/Time Associated Diagnosis Comments LIPID PANEL Routine 08/09/2022 SCR MAMMO BI INCL CAD Routine 05/11/2020 6:49 PM EST Encounter for screening mammogram for malignant neoplasm of breast HEPATITIS C SCREENING Routine 11/30/2019 HIV SCREENING Routine 11/30/2019 HPV Routine 05/13/2019 from Last 3 Months or Most Recently Relevant to Health Maintenance Results * Lipid panel (08/09/2022) LDL/HDL Ratio 3 0 - 4 Triglycerides 87 0 - 150 mg/dL Cholesterol 174 0 - 200 mg/dL HDL 59 >=40 mg/dL LDL Cholesterol 98 0 - 100 mg/dL Blood Venous blood specimen / Unknown us Historical Provider LAB BLOOD ORDERABLES Chuyita l Result * SCR MAMMO BI INCL CAD (05/11/2020 6:49 PM EST) Anatomical Region Laterality Modality Radiographic Yisel ging 11/30/2019 1:55 PM EDT Narrative 05/12/2020 4:01 PM EST This is a summary report. The complete report is available in the patient's medical record. If you cannot access the medical record, please contact the sending organization for a detailed fax or copy. BILATERAL 2D DIGITAL SCREENING MAMMOGRAM History: Routine screening. ??No current breast complaints. Comparison: Baseline Technique: Bilateral full-field digital mammography was performed using standard CC and MLO projections CAD was used to evaluate this mammogram. Findings: Density: There are scattered areas of fibroglandular density-B RIGHT: No suspicious masses, groups of microcalcification or areas of architectural distortion identified. Typically benign parenchymal asymmetries LEFT: No suspicious masses, groups of microcalcifications or areas of architectural distortion identified. Typically benign parenchymal asymmetries IMPRESSION: : 1. ??No mammographic evidence of malignancy. BI-RADS Category 2 benign findings Recommendation: Routine annual screening mammography is recommended Procedure Note Hue [place] MD - 05/15/2022 This is a summary report. The complete report is available in thepatient's medical record. If you cannot access the medical record, pleasecontact the sending organization for a detailed fax or copy. BILATERAL 2D DIGITAL SCREENING MAMMOGRAM History: Routine screening. No current breast complaints. Comparison: Baseline Technique: Bilateral full-field digital mammography was performed usingstandard CC and MLO projections CAD was used to evaluate this mammogram. Findings: Density: There are scattered areas of fibroglandular density-B RIGHT: No suspicious masses, groups of microcalcification or areas ofarchitectural distortion identified. Typically benign parenchymalasymmetries LEFT: No suspicious masses, groups of microcalcifications or areas ofarchitectural distortion identified. Typically benign parenchymalasymmetries IMPRESSION: : 1. No mammographic evidence of malignancy. BI-RADS Category 2 benign findings Recommendation: Routine annual screening mammography is recommended Elissa Delvalle CNM IMG XR PROCEDURES Final Result * HIV Screening (11/30/2019) Pathologist [facility] HIV Screening Abstracted [facility] Provider HEALTH MAINTENANCE Final Result * Hepatitis C Screening (11/30/2019) Pathologist [facility] Hepatitis C Screening Abstracted [facility] Provider HEALTH MAINTENANCE Final Result * Cervical Cancer Screening: HPV (05/13/2019) [facility] Cervical Cancer Screening: HPV Negative, Abstracted [facility] Provider HEALTH MAINTENANCE Final Result from Last 3 Months or Most Recently Relevant to Health Maintenance Insurance MEDICAID - [place] Care Teams Border Measurer And Cutter Relationship Specialty Start Date End Date Kiya Small MD [address] [place] [id number] PCP - General 05/24/22
== END 2024-10-06 14:40 | disposition home or self-care (01) ==
LOC: HO.HGS 14:07
PROVIDERS: PCP Internal Medicine; Visit Provider Surgery
DX: K80.50 Calculus of bile duct without cholangitis or cholecystitis without obstruction (principal)
CPT/HCPCS: 99204

== ENCOUNTER → 2024-10-06 14:06 | Outpatient (BNVA) | payer OTHER, SELFPAY | PROVIDERS: PCP Internal Medicine; Visit Provider Surgery | DX: K80.50 Calculus of bile duct without cholangitis or cholecystitis without obstruction (principal) | CPT/HCPCS: 99202 ==